=== PATIENT | female | born 1990 | race Caucasian/White ===

== ENCOUNTER 2024-01-10 21:04 | Emergency (ER) | payer OTHER, SELFPAY ==
[2024-01-10 21:10] VITALS: BP 141/67; PULSE 75; TEMP 37.3; O2SAT 99; BMI 27.4
--- NOTE | 2024-01-10 21:17 | XR_ITS ---
The [address] [address] Patient Name: COMFORT MARCOS MRN: [id number] date: 1990 Sex: F Assigned Patient Location: ED.MAIN Current Patient Location: ER Accession/Order Number: [id number] Exam Date: 01/10/2024 21:35 Report Date: 01/10/2024 22:53 At the request of: CHAPIS BATRES Procedure: XR ankle RT min 3V EXAM: XR ankle RT min 3V HISTORY: The patient is a 33-year-old female, FALL COMPARISON: None. FINDINGS: No acute or ununited fractures are seen within or around the ankle joint. The ankle mortise is intact and uniform. The syndesmosis is maintained. No soft tissue swelling is seen. XR/XR ankle RT min 3V IMPRESSION: Radiographically negative right ankle. Electronically authenticated by: ELIAN UMANZOR Date: 01/10/2024 22:53
--- NOTE | 2024-01-10 22:03 | ED_ITS ---
HPI HPI - Extremity Injury (Lower) General Chief Complaint: Extremity Injury, Lower Stated Complaint: Lower Injury Time Seen by Provider: 01/10/24 21:58 Source: patient Mode of arrival: Wheelchair Limitations: no limitations History of Present Illness HPI Narrative: walking down steps carrying xmas tree and mis step on last stair and twist right foot. History of RA. Has focal pain and swelling of the foot. No pain or injury of the ankle or elsewhere. No numbness or weakness Related Data Allergies Allergy/AdvReac Type Severity Reaction Status Date / Time adalimumab (From Humira) Allergy Unknown SYNCOPE Verified 01/10/24 21:09 Opioid HPI Opioid Management Most Recent Pain and Opioid Data: Last Pain Scale 8 01/10/24 21:19 01/10/24 Review of Systems ROS Status of ROS 10 or more systems reviewed and unremark able except as noted in history and below Exam Constitutional Vital Signs, click to edit/add: Last Vital Signs Temp 99.1 F 01/10/24 21:10 Pulse 75 01/10/24 21:10 Resp 18 01/10/24 21:10 BP 141/67 01/10/24 21:10 Pulse Ox 99 01/10/24 21:10 O2 Del Method Room Air 01/10/24 21:10 Common normals: no apparent distress, average body habitus, oriented x3, no limitations, healthy appearing, alert and well nourished [facility] Common normals: normocephalic and head/scalp atraumatic Respiratory Common normals: normal respiratory effort, no retractions, no use of accessory muscles and clear to auscultation bilaterally Cardio Common normals: regular rate, regular rhythm, S1 normal heart sound and S2 normal heart sound Extremity Other: mild focal swelling dorsum right foot right ankle exam is neg Neuro Common normals: oriented x3, CN's II-XII intact bilaterally, moves all extremities and no focal motor deficits Psych Appearance: grossly normal Course Vital Signs Vital signs: Vital Signs Temperature 99.1 F 01/10/24 21:10 Pulse Rate 75 01/10/24 21:10 Respiratory Rate 18 01/10/24 21:10 Blood Pressure 141/67 01/10/24 21:10 Pulse Oximetry 99 01/10/24 21:10 Oxygen Delivery Method Room Air 01/10/24 21:10 Temperature 99.1 F 01/10/24 21:10 Pulse Rate 75 01/10/24 21:10 Respiratory Rate 18 01/10/24 21:10 Blood Pressure 141/67 01/10/24 21:10 Pulse Oximetry 99 01/10/24 21:10 Oxygen Delivery Method Room Air 01/10/24 21:10 MDM - Extremity Injury (Lower) MDM Narrative Medical decision making narrative: twist right foot walking down stairs while carrying xmas tree. mild focal swelling dorsum of foot. N/V intact. xrays neg for fracture. patient placed in post op shoe and discharged home Discharge Plan Discharge Chief Complaint: Extremity Injury, Lower Clinical Impression: Foot sprain Patient Disposition: Home, Self-Care Print Language: Czech Instructions: Foot Sprain (ED), Cold Compress or Soak (ED) Additional Instructions: follow up with the family doctor next week for recheck. Continue motrin for pain Referrals: Physician,Non-Staff, MD [Primary Care Provider] - 1 week
--- NOTE | 2024-01-10 22:07 | XR_ITS ---
The [address] [address] Patient Name: COMFORT MARCOS MRN: [id number] date: 1990 Sex: F Assigned Patient Location: ER Current Patient Location: Accession/Order Number: [id number] Exam Date: 01/10/2024 22:43 Report Date: 01/10/2024 23:38 At the request of: CHAPIS BATRES Procedure: XR foot RT min 3V EXAM: XR foot RT min 3V HISTORY: The patient is a 33-year-old female, injury COMPARISON: None. FINDINGS: The right foot is radiographically negative with no evidence of fracture, dislocation, joint space narrowing, osteophytes, or other osseous or articular abnormalities. XR/XR foot RT min 3V IMPRESSION: Negative. Electronically authenticated by: ELIAN UMANZOR Date: 01/10/2024 23:38
== END 2024-01-10 23:20 | disposition home or self-care (01) ==
PROVIDERS: Emergency Provider Internal Medicine
DX: S93.601A Unspecified sprain of right foot, initial encounter (principal); X50.1XXA Overexertion from prolonged static or awkward postures, initial encounter
CPT/HCPCS: 73610; 73630; 99283